=== PATIENT | male | born 1980 | race Caucasian/White ===

== ENCOUNTER 2019-04-06 08:46 | Outpatient (CLI) | payer BC ==
--- NOTE | 2019-04-06 09:29 | MRI ---
CERVICAL SPINE MRI WITHOUT CONTRAST: Date: 04/06/2019 COMPARISON: 03/02/2015. HISTORY: Chronic neck pain radiating down the left shoulder/arm for 5 years. TECHNIQUE: Multiplanar multisequence MR imaging of the cervical spine obtained without contrast. FINDINGS: The sagittal STIR imaging demonstrates no focal area of osseous marrow edema. There is mild degenerative change at the atlantoaxial interspace. There is no anterolisthesis or retr olisthesis and no prevertebral soft tissue swelling. C2-3: No central canal or neural foraminal stenosis. Mild bilateral facet hypertrophy. C3-4: Mild right facet and uncovertebral osteophyte formation. No significant central canal or neural foraminal stenosis. C4-5: No significant central canal or neural foraminal stenosis C5-6: There is disc space narrowing and disc desiccation with mild disc bulge, stable. This effaces t he ventral aspect of the thecal sac and abuts the ventral aspect of the cord with a mild degree of central canal stenosis, slightly worsened when compared to the prior exam. There is mild bilateral ne ural foraminal stenosis with probable mild right uncovertebral osteophyte formation. C6-7: No significant central canal or neural foraminal stenosis C7-T1: No significant central canal or neural foraminal stenosis. There is no focal area of abnormal signal intensity identified within the cervical cord. IMPRESSION: No significant interval change in cervical spine degenerative change, primarily affecting the C5-6 le grzegorz. Transcribed Date/Time: 04/06/2019 10:44 AM
== END 2019-04-06 08:47 | disposition home or self-care (01) ==
LOC: SCSMRI 08:46
PROVIDERS: ATTEND Specialist
DX: M54.12 Radiculopathy, cervical region (principal)
CPT/HCPCS: 72141